=== PATIENT | male | born 1985 | race Caucasian/White ===

== ENCOUNTER 2022-05-07 22:21 | Emergency (ER) | payer OTHER ==
[~2022-05-07] VITALS: Ht 165.1 cm; Wt 65.8 kg
[2022-05-07] MEDS ORDERED: IV NORMAL SALINE 1000 ML BAG IV ONE (23:00)
[2022-05-07] MEDS ORDERED: KETOROLAC TROMETHAMINE 30 MG INJ IVP ONE (23:00)
[2022-05-07] MEDS ORDERED: ONDANSETRON 4 MG/2 ML VIAL IV ONE (23:00)
[2022-05-07] MEDS ORDERED: HYDROMORPHONE 1 MG/1 ML DISP.SYRIN IV ONE (23:00)
[2022-05-07] MEDS ORDERED: ONDANSETRON 4 MG/2 ML VIAL ONE (23:07)
[2022-05-07] MEDS ORDERED: HYDROMORPHONE 1 MG/1 ML DISP.SYRIN ONE (23:08)
[2022-05-07] MEDS ORDERED: KETOROLAC TROMETHAMINE 30 MG INJ ONE (23:08)
[2022-05-07 23:14] LABS: HEMATOCRIT 47.2 % (36.7-47.1); MEAN CORPUSCULAR HEMOGLOBIN 32.7 uug (23.8-33.4); MEAN CORPUSCULAR VOLUME 97.4 fL (73.0-96.2); PLATELET COUNT (AUTO) 203 K/uL (152-348)
[2022-05-07] MEDS ORDERED: MORPHINE SULFATE 4 MG/1 ML DISP.SYRIN ONE (23:37)
[2022-05-07 23:43] LABS: BILIRUBIN,DIRECT 0.1 mg/dL (0.0-0.2); BILIRUBIN,TOTAL 0.5 mg/dL (0.2-1.0); TOTAL PROTEIN, SERUM 7.5 g/dL (6.4-8.2)
[2022-05-07] MEDS ORDERED: MORPHINE SULFATE 4 MG/1 ML DISP.SYRIN IV ONE (23:45)
[2022-05-07 23:49] LABS: CREATININE 1.2 mg/dL (0.6-1.3); POTASSIUM 3.3 mmol/L (3.5-5.1)
[2022-05-08] MEDS ORDERED: IV NS 1000 ML 1,000 ML IV ONE (00:30)
[2022-05-08 01:24] LABS: *BILIRUBIN,URIN NEGATIVE (NEGATIVE); *BLOOD, URINE 3+ (NEGATIVE); *CLARITY,URINE CLEAR (CLEAR); *COLOR,URINE YELLOW (YELLOW); *KETONES,URINE NEGATIVE (NEGATIVE); *UROBILINOGEN,URINE 0.2 E.U./dl (NORMAL); LEUKOCYTE ESTERASE ,URINE NEGATIVE (NEGATIVE); NITRITE, URINE NEGATIVE (NEGATIVE); PH,URINE 5.5 (5.0-8.0); UGLUCOSE NEGATIVE (NEGATIVE)
[2022-05-08 01:34] LABS: BACTERIA,URINE FEW /HPF (NONE SEEN); SQUAMOUS EPITHELIAL CELL,UR FEW /HPF (NONE SEEN); WBC,URINE 0-3 /HPF (0-3)
[2022-05-08 02:12] LABS: CREATININE 1.1 mg/dL (0.6-1.3)
[2022-05-08] MEDS ORDERED: TAMS-3 PO (02:49)
[2022-05-08] MEDS ORDERED: ONDA4TAB11 PO (02:49)
[2022-05-08] MEDS ORDERED: IBUP-1958 PO (02:49)
[2022-05-08] MEDS ORDERED: HYDR-4209 PO (02:49)
[2022-05-08] MEDS ORDERED: MORPHINE SULFATE 4 MG/1 ML DISP.SYRIN ONE (02:57)
[2022-05-08] MEDS ORDERED: MORPHINE SULFATE 4 MG/1 ML DISP.SYRIN IM ONE (03:00)
--- NOTE | 2022-05-08 03:21 | NUR ---
Patient discharged to home in stable condition. Written and verbal after care instructions given. Patient verbalizes understanding of instructions. Stressed follow up or return to ER for worsening s/s. Patient is a/ox4, NAD noted. patient ambulated with steady gait. accompanied by SO
[2022-05-08 03:22] VITALS: BP 125/67
== END 2022-05-08 03:23 | disposition home or self-care (01) ==
LOC: ER 22:21 → EDBD 22:21 → ER 05-08 03:23
DX: N13.2 Hydronephrosis with renal and ureteral calculous obstruction (principal); R78.5 Finding of other psychotropic drug in blood; Z87.442 Personal history of urinary calculi; Z87.19 Personal history of other diseases of the digestive system
CPT/HCPCS: 99285; 74176; 96374; 96375; 96361 ×2; 80076; 80048 ×2; 83690; 85025; 36415 ×2; 81001; 96376; J1885; J2405; J2270 ×2; J7040 ×2; A4663; J1170